=== PATIENT | female | born 1990 | race Caucasian/White ===

== ENCOUNTER 2017-05-23 09:48 | Inpatient (IN) | payer SELFPAY ==
[~2017-05-23] VITALS: Ht 162.6 cm; Wt 57.6 kg
[2017-05-23] MEDS ORDERED: SODIUM CHLORIDE 0.9% 1,000 ML IV ONE ×2 (10:03→11:16)
[2017-05-23] MEDS ORDERED: ONDANSETRON HCL 4MG/2ML VIAL IV STA (10:03)
[2017-05-23 10:27] LABS: BASOPHILS % 0.9 % (0.0-2.0); EOSINOPHILS % 7.8 % (0.0-5.0); HEMATOCRIT. 38.9 % (36.0-48.0); HEMOGLOBIN. 12.8 g/dL (12.0-16.0); LYMPHOCYTES % 22.5 % (20.0-50.0); MEAN CORPUSCULAR HEMOGLOBIN 29.9 pg (28.0-32.0); MEAN CORPUSCULAR VOLUME 90.3 fL (81.0-99.0); MEAN PLATELET VOLUME 7.1 fl (7.4-10.4); MONOCYTES % 5.2 % (2.0-8.0); NEUTROPHILS % 63.6 % (40.0-76.0); PLATELET 336 x1000/uL (130-400); RED CELL DISTRIBUTION WIDTH 13.9 % (11.6-14.6)
[2017-05-23 10:35] LABS: PROTHROMBIN TIME 10.7 sec (9.4-11.6)
[2017-05-23 10:39] LABS: CHLORIDE 105 mEq/L (98-107); ETHANOL BLOOD < 10 mg/dL
[2017-05-23 10:45] LABS: CLARITY URINE CLOUDY (CLEAR); COLOR URINE YELLOW (YELLOW); KETONES URINE NEGATIVE (NEGATIVE); LEUKOCYTE ESTERASE URINE NEGATIVE (NEGATIVE); NITRITE URINE POSITIVE (NEGATIVE); OCCULT BLOOD URINE 1+ (NEGATIVE); PH URINE 5.5 (4.5-8.0); PROTEIN URINE 1+ (NEGATIVE); SPECIFIC GRAVITY URINE 1.027 (1.005-1.030); UROBILINOGEN URINE 0.2 E.U./dL (0.2-1.0)
[2017-05-23 10:46] LABS: PHENOBARBITAL < 2.1 ug/mL (15.0-40.0)
[2017-05-23 10:54] LABS: CREATINE KINASE 3515 IU/L (26-192)
[2017-05-23 10:55] LABS: CARBAMAZEPINE < 0.5 ug/mL (4-12)
[2017-05-23 10:56] LABS: HCG SCREEN NEGATIVE
[2017-05-23 10:57] LABS: *BARBITURATES SCREEN URINE NEGATIVE (NEGATIVE); *COCAINE SCREEN URINE NEGATIVE (NEGATIVE); METHADONE URINE SCREEN NEGATIVE (NEGATIVE); OPIATES URINE SCREEN NEGATIVE (NEGATIVE)
[2017-05-23 10:58] LABS: PHENCYCLIDINE URINE SCREEN NEGATIVE (NEGATIVE)
[2017-05-23 10:59] LABS: *AMPHETAMINES SCREEN URINE PRESUMTIVE POSITIVE (NEGATIVE); *BENZODIAZEPINES SCREEN URINE PRESUMTIVE POSITIVE (NEGATIVE); CANNABINOID URINE SCREEN PRESUMTIVE POSITIVE (NEGATIVE)
[2017-05-23 12:47] LABS: CREATINE KINASE 3542 IU/L (26-192)
[2017-05-23 16:20] VITALS: BP 108/62
[2017-05-23 16:30] VITALS: BP 108/62
[2017-05-23] MEDS ORDERED: ALPR2TAB2 PO (17:59)
[2017-05-23] MEDS ORDERED: MIRT15TA PO (17:59)
[2017-05-23] MEDS ORDERED: ACETAMINOPHEN 325MG TABLET PO PRN (18:00)
[2017-05-23] MEDS ORDERED: MAGNESIUM/ALUMINUM HYDROXIDE/SIMETHICONE 30ML UDC PO PRN (18:00)
[2017-05-23] MEDS ORDERED: DIPHENHYDRAMINE 50MG/ML VIAL IV PRN (18:00)
[2017-05-23] MEDS ORDERED: ONDANSETRON HCL 4MG/2ML VIAL IV PRN (18:00)
[2017-05-23] MEDS: SODIUM CHLORIDE 0.9% 1,000 ML IV SCH (19:02)
[2017-05-23 20:00] VITALS: BP 101/62
[2017-05-23] MEDS ORDERED: MIRTAZAPINE 15MG TABLET PO SCH (22:00)
[2017-05-23] MEDS ORDERED: ALPRAZOLAM 0.25 MG TABLET PO PRN (23:30)
[2017-05-24] VITALS: BP 107/73
[2017-05-24] MEDS: SODIUM CHLORIDE 0.9% 1,000 ML IV SCH ×4 (01:45→18:11)
[2017-05-24 04:00] VITALS: BP 96/62
[2017-05-24 07:10] LABS: BASOPHILS % 1.3 % (0.0-2.0); EOSINOPHILS % 7.2 % (0.0-5.0); HEMATOCRIT. 34.9 % (36.0-48.0); HEMOGLOBIN. 11.8 g/dL (12.0-16.0); LYMPHOCYTES % 32.5 % (20.0-50.0); MEAN CORPUSCULAR HEMOGLOBIN 30.6 pg (28.0-32.0); MEAN CORPUSCULAR VOLUME 90.4 fL (81.0-99.0); MEAN PLATELET VOLUME 7.1 fl (7.4-10.4); MONOCYTES % 7.5 % (2.0-8.0); NEUTROPHILS % 51.5 % (40.0-76.0); PLATELET 316 x1000/uL (130-400); RED BLOOD CELL COUNT 3.86 mill/uL (4.2-5.4); RED CELL DISTRIBUTION WIDTH 13.7 % (11.6-14.6)
[2017-05-24 07:56] LABS: CHLORIDE 109 mEq/L (98-107)
[2017-05-24 08:00] VITALS: BP 80/39
[2017-05-24 08:00] LABS: PHOSPHORUS 3.9 mg/dL (2.5-4.9)
[2017-05-24] MEDS: LEVOFLOXACIN 500MG TABLET PO SCH (11:30)
[2017-05-24 14:24] LABS: CREATINE KINASE 3881 IU/L (26-192)
[2017-05-24 16:00] VITALS: BP 118/73
[2017-05-24] MEDS ORDERED: METHOCARBAMOL 500MG TABLET PO NR (17:45)
[2017-05-24] MEDS ORDERED: IBUPROFEN 200MG TABLET PO PRN (17:45)
[2017-05-24 20:00] VITALS: BP 95/65
[2017-05-24] MEDS ORDERED: MIRTAZAPINE 15MG TABLET PO SCH (22:00)
[2017-05-25] VITALS: BP 92/58
[2017-05-25 07:37] LABS: CHLORIDE 108 mEq/L (98-107)
[2017-05-25 08:00] VITALS: BP 90/60
[2017-05-25 08:12] LABS: CREATINE KINASE 2080 IU/L (26-192)
[2017-05-25] MEDS: LEVOFLOXACIN 500MG TABLET PO SCH (10:04)
[2017-05-25 12:00] VITALS: BP 103/68
[2017-05-25] MEDS: SODIUM CHLORIDE 0.9% 1,000 ML IV SCH (13:54)
[2017-05-25 15:56] VITALS: BP 104/60
[2017-05-25 16:01] VITALS: BP 104/60
== END 2017-05-25 17:55 | disposition home or self-care (01) | DRG 812 ==
LOC: ER 10:12 → 5WST 14:14 → ENRESERV 15:17 → CANRESERV 15:17 → ENRESERV 15:21 → CANRESERV 16:20 → ENRESERV 16:20 → CANBEDREQ 19:59
PROVIDERS: ADMIT Internal Medicine; ATTEND Internal Medicine
DX: T43.621A Poisoning by amphetamines, accidental (unintentional), initial encounter (principal); G92 Toxic encephalopathy; F17.200 Nicotine dependence, unspecified, uncomplicated; M60.9 Myositis, unspecified; M62.82 Rhabdomyolysis; Z60.2 Problems related to living alone; N39.0 Urinary tract infection, site not specified; Z79.899 Other long term (current) drug therapy; Y92.89 Other specified places as the place of occurrence of the external cause
CPT/HCPCS: 36415; 80053; 80156; 80165; 80184; 80185; 80305; 81003; 82085; 82550; 83735; 83880; 84100; 84443; 84484; 84703; 85025; 85610; 87077; 87086; 87186; 93005; 96361; 96374; 99285; G0482; J2405; J7030